=== PATIENT | male | born 1985 | race Caucasian/White ===

== ENCOUNTER 2016-07-29 07:53 | Day surgery (SDC) | payer OTHER ==
[~2016-07-29] VITALS: Ht 180.3 cm; Wt 94.0 kg
[~2016-07-29 07:53] MED LIST: 0.9% Sodium Chloride 1,000 ML IV SCH; Sodium Chloride LOK Flush 10 mL Syringe IV PRN; fentaNYL-PF 50 mCg/mL 2 mL Inj IVPUSH PRN
[2016-07-29 08:33] VITALS: BP 138/85; PULSE 71; RESP 16; O2SAT 99
--- NOTE | 2016-07-29 09:42 | PCM.ENDEGD ---
EGD Date of Service: Jul 29, 2016 Physician Antony Hernandez MD Pre Procedure Diagnosis: Abdominal pain Post Procedure Dx & Findings: 1 cm redness in the body of the stomach Procedure Esophagogastroduodenoscopy PROCEDURE IN DETAIL: After proper sedation, Olympus video endoscope was inserted into patient's mouth and esophagus was successfully intubated. Scope introduced esophagus. Esophagus showed normal shiny whitish mucosa consistent with squamous cell component. Z line was intact at 45 cm from the incisors. Stomach further events to the stomach. Stomach showed normal shiny mucosa with normal appearing rugae folds without any ulcer mass erosion. However there was a 1 cm redness in the body of the stomach. This was biopsied using cold forceps. Cardia fundus body antrum pylorus were all visualized. Retroflexion was done. Stomach was easily inflated and deflatable using air. Scope further events to the distal duodenum. Duodenum revealed normal villous structures with normal appearing folds without any mass ulcer erosion. Random biopsies obtained 5 obtained. Impression 1 cm redness in the stomach. No clear cause of abdominal pain Recommendation Await biopsy Follow-up in the GI clinic with Bailey Bell for abdominal pain. Presedation Assessment Risks and Benefits Informed consent was obtained from the patient after all risks and benefits including but not limited to drug reaction, infection, pain, bleeding, perforation, as well as alternatives were discussed. Patient monitoring Continuous pulse oximetry, cardiac monitoring, blood pressure monitoring, IV access, and oxygen at 2L per nasal cannula. Periprocedural Fentanyl: Fentanyl 200mcg Incrementally Midazolam: Midazolam 10mg Incrementally Complications There were no periprocedural complications identified. Post Procedure Plan Post Procedure Recommendations 1. Restrict activities today. 2. Resume normal activities in the morning. 3. Resume medications. 4. GERD behavioral modification: - Avoid fatty, acidic, spicy, large meals - Do not lie down after meals - Do not eat or drink anything for at least 2 1/2 hours before going to bed at night - Discontinue tobacco and alcohol - Decrease or avoid caffeine - Avoid chocolate and mints - Decrease weight - Avoid aspirin and non steroidal anti-inflammatory agents (NSAID) such as Aleve, Advil, Mobic, Naproxen, Ibuprofen, etc 5. Add proton pump inhibitor. Take 30 minutes before 1st meal of the day. 6. Patient informed of normal post procedure side effects as bloating, drowsiness, blood streaking in the stool 7. If gastric biopsy reveal H.pylori, continue with appropriate treatment 8. If small bowel biopsy reveals celiac, continue with appropriate treatment 9. Please don't hesitate to call me with any questions Antony Hernandez MD Jul 29, 2016 09:41
--- NOTE | 2016-07-29 09:43 | PCM.ENDCOL ---
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 There was no one spot in the emesis pulses site which appeared to be irritated with redness and edema. Biopsies obtained. Visualized colonic mucosa showed healthy shiny mucosa with normal healthy-appearing vasculature. In the rectum retroflexion was done which showed hemorrhoids. Anal canal was inspected carefully on the way out and hemorrhoids noted. Impression Coby syndrome Anastomosis site irritation status post biopsy Hemorrhoids Recommendation Repeat colonoscopy 1 year Presedation Assessment Risks and Benefits Informed consent was obtained from the patient after all risks and benefits including but not limited to drug reaction, infection, pain, bleeding, perforation, as well as alternatives were discussed. Patient monitoring Continuous pulse oximetry, cardiac monitoring, blood pressure monitoring, IV access, and oxygen at 2L per nasal cannula. Complications There were no periprocedural complications identified. Post Procedure Plan Post Procedure Recommendations 1. Restrict activities today. 2. Resume normal activities in the morning. 3. Resume medications. 4. Patient informed of normal post procedure side effects as bloating, drowsiness, blood streaking in the stool. 5. average risk CRCS. If colon polyps come back as: -Hyperplastic- can repeat colonoscopy in 10 years -Tubular adenoma- repeat colonoscopy in 5 years -Tubulovillous/villous adenoma- repeat colonoscopy in 3 years -If any dysplasia- return to clinic as soon as possible 6. Please don't hesitate to call me with any questions. Antony Hernandez MD Jul 29, 2016 09:43
[2016-07-29 09:44] VITALS: BP 132/66; PULSE 74; RESP 16; O2SAT 97
[2016-07-29 09:50] VITALS: BP 128/66; PULSE 80; RESP 16; O2SAT 96
[2016-07-29 10:00] VITALS: BP 140/66; PULSE 95; RESP 16; O2SAT 97
[2016-07-29 10:10] VITALS: BP 156/71; PULSE 98; RESP 15; O2SAT 97
--- NOTE | 2016-07-30 11:29 | PATH ---
SURGICAL PATHOLOGY Attending Physician:Antony Hernandez M.D. CASE STATUS: Signed Out PATIENT NAME: BAL CM PID: [id number] : 1985 DATE COLLECTED:07/29/2016 20:38 SPECIMEN: 1: Gastric, Biopsy 2: Duodenum, Biopsy 3: Ileum, Biopsy CLINICAL HISTORY: 1). GASTRIC BIOPSY 2). DUODENAL BIOPSY 3). TERMINAL ILEUM BIOPSY FINAL DIAGNOSIS: 1.GASTRIC BIOPSY: MUCOSAL HYPEREMIA WITHOUT ASSOCIATED SIGNIFICANT INFLAMMATION INVOLVING FUNDIC MUCOSA. Negative for evidence of Helicobacter. Negative for intestinal metaplasia. Negative for dysplasia and malignancy. 2.DUODENAL BIOPSY: FRAGMENTS OF NORMAL-APPEARING SMALL BOWEL MUCOSA. Normal delicate mucosal villi present. Negative for significant inflammation, dysplasia and malignancy. 3.TERMINAL ILEUM BIOPSY: FRAGMENTS OF NORMAL-APPEARING COLON MUCOSA. No terminal ileum mucosa identified. Negative for significant architectural distortion, inflammation, dysplasia and malignancy. ICD10 code R10.9 GROSS DESCRIPTION: The specimen is received in three formalin filled containers labeled with the patient's name. 1). The specimen is sublabeled "gastric" and consists up a 0.3 x 0.3 x 0.2 CM portion of tissue which is entirely submitted in cassette 1A. 2). The specimen is sublabeled "duodenal" and consists of 3 portions of tissue which aggregate to 0.3 x 0.3 x 0.2 CM. The specimen is entirely submitted in cassette 2A. 3). The specimen is sublabeled "terminal ileum" and consists of a 0.2 x 0.2 x 0.2 CM portion of tissue which is entirely submitted in cassette 3A. 07/29/2016 [facility] MICRO DESCRIPTION: See diagnosis. ICD-9 CODES: CPT CODES: 1: 36837 2: 85263 3: 93785 Electronically Signed Out Kamron Morales MD [facility] [address], [place] [address] Technical component performed at [facility], [facility] [address], [place], [address]
== END 2016-07-29 23:59 | disposition home or self-care (01) ==
LOC: END 07:53
PROVIDERS: ATTEND Internal Medicine
DX: R10.9 Unspecified abdominal pain (principal); K31.89 Other diseases of stomach and duodenum; K64.9 Unspecified hemorrhoids; Z85.038 Personal history of other malignant neoplasm of large intestine; Z84.81 Family history of carrier of genetic disease
CPT/HCPCS: 43239; 45380; 99153; G0500; J7030